=== PATIENT | male | born 1985 | race Hispanic/Latino ===

== ENCOUNTER → 2024-05-23 | Outpatient (CLI) | payer OTHER ==
--- NOTE | 2024-05-23 14:58 | HMCIMG ---
Exam Type: MR KNEE RIGHT WO Clinical Information: M25.561 Pain in right knee Comparison: None Technique: MRI of the knee was done with triplane localizer, axial T2 as well as sagittal proton density T2, T1, and fat-saturated T2. In addition, coronal T1 and coronal fat-saturated spin-echo sequences are available for review. FINDINGS: There is a complex tear of the posterior horn of the medial meniscus with inferior articular surface involvement. No other meniscal tears are present. There is a tear of the proximal aspect of the anterior cruciate ligament. No effusions are identified. No bony abnormalities are seen. The articular cartilage is preserved. The posterior cruciate and collateral ligaments are intact. No periarticular soft tissue abnormalities are seen. There are no other gross abnormalities. IMPRESSION: Complex tear posterior horn medial meniscus with inferior articular surface involvement. Anterior cruciate ligament tear.
== END | disposition home or self-care (01) ==
LOC: RAH 13:44 → EEVIPCON 13:44
PROVIDERS: ATTEND Family Medicine
DX: S83.511A Sprain of anterior cruciate ligament of right knee, initial encounter (principal); S83.241A Other tear of medial meniscus, current injury, right knee, initial encounter; M25.561 Pain in right knee; X58.XXXA Exposure to other specified factors, initial encounter; Y93.89 Activity, other specified; Y92.89 Other specified places as the place of occurrence of the external cause; Y99.8 Other external cause status
CPT/HCPCS: 73721